=== PATIENT | male | born 1975 | race Caucasian/White ===

== ENCOUNTER 2017-07-23 12:17 | Outpatient (CLI) | payer BC ==
[2017-07-23 13:16] LABS: #Basophils 0.1 thou/uL (0.0-0.2); #Eosinphils 0.3 thou/uL (0.0-0.7); #Lymphocytes 2.1 thou/uL (1.20-3.40); #Monocytes 0.7 thou/uL (0.11-0.59); #Neutrophils 3.4 thou/uL (1.40-6.50); %Basophils 0.8 % (0.0-1.0); %Eosinophils 5.1 % (0.0-10.0); %Lymphocytes 31.6 % (21.0-51.0); %Neutrophils 52.4 % (42.0-75.0); Hemoglobin 14.9 g/dL (14.0-18.0); Mean Corpuscular HGB CONC 33.7 g/dL (32.0-36.0); Mean Corpuscular Hemoglobin 30.4 pg (27.0-31.0); Mean Corpuscular Volume 90.3 fl (80.0-94.0); Mean Platelet Volume 8.6 fL (7.4-10.4); Platelet Count 194 thou/uL (130-400); RBC Distribution Width 11.3 % (11.5-14.5); Red Blood Cell (RBC) Count 4.92 mill/uL (4.70-6.10); White Blood Cell (WBC) Count 6.5 thou/uL (4.8-10.8)
[2017-07-23 13:45] LABS: Anion Gap 10 mmol/L (10-20); BUN (Urea Nitrogen) 8 mg/dL (8.9-20.6); Calc. Creatinine Clearance 0 mL/min (70-130); Calcium 10.1 mg/dL (7.8-10.44); Carbon Dioxide 27 mmol/L (22-29); Chloride 106 mmol/L (98-107); Estimated GFR-MDRD Greater than 90; Glucose 87 mg/dL (70-105); Potassium 4.3 mmol/L (3.5-5.1); Sodium 139 mmol/L (136-145)
== END 2017-07-23 12:18 | disposition home or self-care (01) ==
LOC: LABBT 12:17
PROVIDERS: ATTEND Specialist
DX: Z01.812 Encounter for preprocedural laboratory examination (principal); K43.2 Incisional hernia without obstruction or gangrene
CPT/HCPCS: 80048; 85025

== ENCOUNTER 2017-07-27 06:52 | Day surgery (SDC) | payer BC ==
[2017-07-23 12:43] VITALS: BMI 33.5
[2017-07-27] MEDS ORDERED: CEFAZOLIN/Water 2 GM/20 ML SYRINGE ONE (07:09)
[2017-07-27] MEDS ORDERED: Ketorolac Tromethamine 30 MG/ML VIAL ONE (07:09)
[2017-07-27] MEDS ORDERED: Bupivacaine/Epinephrine 0.25% 30 ML VIAL ONE (09:20)
[2017-07-27] MEDS ORDERED: Fentanyl 100 MCG/2 ML VIAL ONE (09:22)
--- NOTE | 2017-07-27 13:15 | OP ---
DATE OF PROCEDURE: 07/27/2017 PREOPERATIVE DIAGNOSIS: Supraumbilical incisional ventral hernia. POSTOPERATIVE DIAGNOSIS: Supraumbilical incisional ventral hernia. OPERATION PERFORMED: Repair of supraumbilical incisional hernia with a 4.6 cm Parietex composite marielena tral hernia patch. SURGEON: Hasmukh Dawn M.D. ANESTHESIA: General endotracheal. INDICATIONS: The patient is a 41-year-old white male. He has a palpable and symptomatic hernia just above the umbilicus. This is reducible. He is taken to the operating room at this time for repair. It is noted that he has a supraumbilical incision from a prior laparoscopic cholecystectomy. DESCRIPTION OF OPERATION: Informed consent was obtained. The patient was taken to the operating krystal m where general endotracheal anesthesia was obtained with the patient in supine position. Abdomen wa s prepped with ChloraPrep and draped in sterile fashion. Local anesthetic was infiltrated using 0.25 % Marcaine with epinephrine. Midline supraumbilical 3 cm incision was created and dissection was car ried through skin and subcutaneous tissue. Dissection was carried directly down onto the hernia. Th is was dissected down to the fascia. The hernia sac was excised. Omental contents were protruding t hrough the fascia. This was divided with electrocautery and the remaining omentum was reduced. Digi ruben inspection was carried out as I passed my finger through the defect. Preperitoneal dissection wa s completed to free the preperitoneal fat away from the underside of the fascia circumferentially. A 4.6 cm Parietex composite ventral patch was obtained and passed in the preperitoneal space were it expanded uneventfully and was pulled snug against the posterior aspect of the fascia. Each of the fo ur leaflets of the anterior portion of the mesh was secured to the fascia with an interrupted suture of 0 Prolene. The fascial defect was then approximated with 2 interrupted sutures of 0 Prolene. The wound was infiltrated with additional local anesthetic. The wound was closed in layers with 3-0 and 4-0 Monocryl suture. Dermabond was placed externally. There were no complications. The patient to lerated the procedure well and was taken to recovery in stable condition.
[2017-07-27] MEDS ORDERED: Dexamethasone 20 MG/5 ML VIAL ONE (15:57)
[2017-07-27] MEDS ORDERED: Lidocaine 1% PF 5 ML VIAL ONE (15:57)
[2017-07-27] MEDS ORDERED: PROPOFOL 200 MG/20 ML VIAL ONE (15:57)
[2017-07-27] MEDS ORDERED: Succinylcholine Chloride 20 MG/ML 10 ml SYRINGE FS ONE (15:57)
== END 2017-07-27 12:05 | disposition home or self-care (01) ==
LOC: SDC 06:52
PROVIDERS: ATTEND Specialist
PROC: 0WUF0JZ Supplement Abdominal Wall with Synthetic Substitute, Open Approach (ICD-10-PCS; principal; 2017-07-27)
DX: K43.2 Incisional hernia without obstruction or gangrene (principal); I10 Essential (primary) hypertension; Z79.1 Long term (current) use of non-steroidal anti-inflammatories (NSAID); Z79.899 Other long term (current) drug therapy
CPT/HCPCS: J0131; J1100; J1885; J2001; J2704; J3010